=== PATIENT | female | born 1945 | race Caucasian/White ===

== ENCOUNTER → 2024-10-30 | Emergency (ER) | payer MEDICARE, BC ==
[~2024-10-30] VITALS: Ht 170.2 cm; Wt 81.6 kg
[~2024-10-30] MED LIST: FENTANYL CITRATE 100 MCG/2 ML AMPUL ONE; HYDROMORPHONE 1 MG/1 ML DISP.SYRIN IM ONE; HYDROMORPHONE 1 MG/1 ML DISP.SYRIN ONE; HYDROMORPHONE 2 MG/1 ML DISP.SYRIN ONE; KETOROLAC TROMETHAMINE 15 MG INJ ONE; ONDANSETRON 4 MG/2 ML VIAL ONE; POTA25TA7 PO; POTASSIUM BICARBONATE/CIT AC 25 MEQ TABLET.EFF ONE; PROPOFOL 200 MG/20 ML BOTTLE ONE
[2024-10-30 14:31] LABS: BASOPHILS # (AUTO) 0.1 K/UL (0.0-0.2); BASOPHILS % (AUTO) 0.6 % (0.0-2.0); EOSINOPHILS # (AUTO) 0.1 K/uL (0.0-0.7); EOSINOPHILS % (AUTO) 0.5 % (0.0-7.0); HEMATOCRIT 35.9 % (31.2-41.9); HEMOGLOBIN 11.7 g/dL (10.9-14.3); LYMPHOCYTES # (AUTO) 1.3 K/uL (0.8-4.8); MEAN CORPUSCULAR HEMOGLOBIN 25.9 uug (24.7-32.8); MEAN CORPUSCULAR HGB CONC 33 g/dL (32.3-35.6); MEAN CORPUSCULAR VOLUME 79.5 fL (75.5-95.3); MONOCYTES # (AUTO) 0.8 K/uL (0.1-1.30); NEUTROPHILS # (AUTO) 18.5 K/uL (1.8-8.9); NEUTROPHILS % (AUTO) 88.9 % (38.5-71.5); PLATELET COUNT (AUTO) 621 K/uL (179-408); RED BLOOD CELL COUNT(AUTO) 4.52 MIL/uL (3.63-4.92); RED CELL DISTRIBUTION WIDTH 17.5 % (12.3-17.7); WHITE BLOOD COUNT (AUTO) 20.9 K/uL (3.8-11.8)
[2024-10-30 14:40] LABS: DIFFERENTIAL COMMENT 1
[2024-10-30 14:45] LABS: CALCIUM 8.9 mg/dL (8.5-10.1); CARBON DIOXIDE 33 mmol/L (21-32); CHLORIDE 90 mmol/L (98-107); CREATININE 0.8 mg/dL (0.6-1.3); GLUCOSE 87 mg/dL (74-106); POTASSIUM 2.9 mmol/L (3.5-5.1); SODIUM SERUM 133 mmol/L (136-145); UREA NITROGEN, BLOOD 17 mg/dL (7-18)
[2024-10-30 14:48] LABS: *BILIRUBIN,URIN NEGATIVE (NEGATIVE); *BLOOD, URINE NEGATIVE (NEGATIVE); *CLARITY,URINE CLEAR (CLEAR); *COLOR,URINE YELLOW (YELLOW); *KETONES,URINE NEGATIVE (NEGATIVE); *PROTEIN,URINE NEGATIVE (NEGATIVE); *UROBILINOGEN,URINE 0.2 E.U./dl (NORMAL); LEUKOCYTE ESTERASE ,URINE 1+ (NEGATIVE); NITRITE, URINE NEGATIVE (NEGATIVE); PH,URINE 6.5 (5.0-8.0); UGLUCOSE NEGATIVE (NEGATIVE)
[2024-10-30 15:01] LABS: BACTERIA,URINE MANY /HPF (NONE SEEN); SQUAMOUS EPITHELIAL CELL,UR FEW /HPF (NONE SEEN)
[2024-10-30] MEDS: KETOROLAC TROMETHAMINE 15 MG INJ IVP ONE (15:05)
[2024-10-30] MEDS: HYDROMORPHONE 1 MG/1 ML DISP.SYRIN IV ONE (15:05)
[2024-10-30] MEDS: ONDANSETRON 4 MG/2 ML VIAL IV ONE (15:27)
[2024-10-30] MEDS: POTASSIUM BICARBONATE/CIT AC 25 MEQ TABLET.EFF PO ONE (15:27)
[2024-10-30] MEDS: FENTANYL CITRATE 100 MCG/2 ML AMPUL IV ONE (18:26)
[2024-10-30] MEDS: PROPOFOL 1,000 MG/100 ML BOTTLE IV ONE (18:28)
[2024-10-30 19:58] VITALS: BP 121/64; O2SAT 91
== END | disposition home or self-care (01) ==
LOC: ER 13:46
DX: T84.021A Dislocation of internal left hip prosthesis, initial encounter (principal); R06.00 Dyspnea, unspecified; R07.9 Chest pain, unspecified; R25.1 Tremor, unspecified; E87.6 Hypokalemia; I70.0 Atherosclerosis of aorta; Z88.1 Allergy status to other antibiotic agents; Z96.611 Presence of right artificial shoulder joint; Z96.641 Presence of right artificial hip joint; W18.30XA Fall on same level, unspecified, initial encounter; Y93.89 Activity, other specified; Y92.89 Other specified places as the place of occurrence of the external cause; Y99.8 Other external cause status
CPT/HCPCS: 99285; 27265; 96374; 96375; 71045; 80048; 81001; 85025; 85730; 86850; 86900; 86901; 84484; 36415; 73502; 93005; 87086; 73501; J1885; J1171 ×2; J2405; J3010; A4606; A4663; C1758; J3490